=== PATIENT | female | born 1950 | race Caucasian/White ===

== ENCOUNTER 2016-09-20 06:49 | Inpatient (IN) | payer MEDICARE ==
[2016-09-12 12:53] VITALS: BMI 36.8
--- NOTE | 2016-09-14 14:15 | HP ---
Satellite [facility] - Chief Complaint Chief Complaint: right knee pain - Past Medical History Allergies/Adverse Reactions: Allergies Allergy/AdvReac Type Severity Reaction Status Date / Time canagliflozin [From Invokana] Allergy Severe Hives Verified 09/12/16 12:35 - Current Medications Current Medications: Home Medications Medication Instructions Recorded Acetaminophen [Tylenol -] 1,000 mg PO Q6H PRN 09/12/16 Anastrozole [Arimidex -] 1 mg PO DAILY 09/12/16 Aspirin [ASA -] 81 mg PO DAILY 09/12/16 Atorvastatin Ca [Lipitor] 20 mg PO HS 09/12/16 Ferrous Sulfate 325 mg PO DAILY 09/12/16 Glimepiride [Amaryl -] 4 mg PO BID 09/12/16 Hydrochlorothiazide 25 mg PO DAILY 09/12/16 Lisinopril 5 mg PO DAILY 09/12/16 Metformin HCl [Glucophage] 1,000 mg PO BID 09/12/16 Multivitamin/Iron/Folic Acid 1 each PO DAILY 09/12/16 [Centrum Women Tablet] Mv, Min #36/Iron,Carbonyl/FA 1 each PO DAILY 09/12/16 [Geritol Complete Tablet] Zolpidem Tartrate [Ambien] 5 mg PO HS PRN 09/12/16 Satellite Physical Exam - Physical Examination General Appearance: Well Nourished, Well Developed, Alert & Oriented x3 ENT: Clear Lung: Normal air movement Heart: Regular rate & rhythm Extremities: Other (right knee- + swelling, + ttp, decr rom, nvi xrays show tricompartmental djd) Neurological: Intact, Alert, Oriented Satellite Impression/Plan - Impression/Plan Impression: right knee djd Operative Procedure: right jacek tkr Date to be Performed: 09/20/16
[2016-09-20] MEDS ORDERED: ceFAZolin SODIUM 1 GM VIAL ONE ×2 (07:05→09:35)
[2016-09-20] MEDS ORDERED: VANCOMYCIN 1,000 MG VIAL (RESTRICTED TO ID ONLY) ONE (07:05)
[2016-09-20] MEDS ORDERED: oxyCODONE HCL 10 MG SUSTAINED ACTING TABLET PO ONE (07:56)
[2016-09-20] MEDS ORDERED: TRANEXAMIC ACID 1000 MG/10 ML VIAL IVPUSH ONE (07:56)
[2016-09-20] MEDS ORDERED: CELECOXIB 200 MG CAPSULE PO ONE (07:56)
[2016-09-20] MEDS ORDERED: CEFAZOLIN 2 GM in DEXTROSE 5%-WATER - 50 ML IVPB ONE (07:56)
[2016-09-20] MEDS ORDERED: GABAPENTIN 300 MG CAPSULE (FP) PO ONE (07:56)
[2016-09-20] MEDS ORDERED: DEXAMETHASONE SOD PHOSPHATE/PF 10 MG/ML SDV ONE (08:43)
[2016-09-20] MEDS ORDERED: SODIUM CHLORIDE 0.9% P/F 10 ML VIAL IJ ONE (08:43)
[2016-09-20] MEDS ORDERED: MIDAZOLAM HCL 2 MG/2 ML SINGLE DOSE VIAL ONE (08:43)
[2016-09-20] MEDS ORDERED: BUPIVACAINE HCL/PF (5 MG/ML) 30 ML VIAL IJ ONE (08:43)
[2016-09-20] MEDS ORDERED: PROPOFOL 20 ML ONE ×3 (09:33→10:33)
[2016-09-20] MEDS ORDERED: SUCCINYLCHOLINE CHLORIDE 200 MG/10 ML VIAL ONE (09:34)
[2016-09-20] MEDS ORDERED: ONDANSETRON 4 MG/2 ML VIAL ONE ×2 (09:44→10:15)
[2016-09-20] MEDS ORDERED: DEXAMETHASONE SOD PHOSPHATE 4 MG/1 ML VIAL ONE (09:44)
[2016-09-20] MEDS ORDERED: VANCOMYCIN 1,000 MG VIAL (RESTRICTED TO ID ONLY) IVPB ONE (11:02)
[2016-09-20] MEDS ORDERED: ZOLPIDEM TARTRATE 5 MG TABLET PO PRN (11:54)
[2016-09-20] MEDS ORDERED: ACETAMINOPHEN 500 MG TABLET (FP) PO PRN (11:54)
[2016-09-20] MEDS ORDERED: ONDANSETRON 4 MG/2 ML VIAL IVPB PRN (11:55)
[2016-09-20] MEDS ORDERED: MAG HYDROX/AL HYDROX/SIMETH 30 ML UNIT-DOSE CUP PO PRN (11:55)
[2016-09-20] MEDS ORDERED: LACTATED RINGERS SOLUTION 1,000 ML IV SCH (12:00)
[2016-09-20] MEDS ORDERED: oxyCODONE HCL 5 MG TABLET PO PRN (12:03)
--- NOTE | 2016-09-20 13:38 | OP ---
Operative Note - Note: Operative Date: 09/20/16 Pre-Operative Diagnosis: Right knee djd, oa Operation: AMEE right TKR Post-Operative Diagnosis: Same as Pre-op Surgeon: Lee Pena Anesthesiologist/SYNTHETIC DEPARTMENT SUPERVISOR: Timothy Maradiaga Anesthesia: Spinal Estimated Blood Loss (mls): 100 Fluid Volume Replaced (mls): 1,000 Operative Report Dictated: Yes
--- NOTE | 2016-09-20 13:39 | SURG ---
Surgery Registration Representative Note Registration Representative: Rhett Desai PA-C Date of Service: 09/20/16 Diagnosis: Right knee djd Procedure: AMEE right toatal knee replacement I was present for the entirety of the operative procedure. For further detail, please refer to operative report. Visit type - Case Type Case Type: Scheduled Admission - New patient This patient is new to me today: Yes Date on this admission: 09/20/16
[2016-09-20] MEDS: GLIMEPIRIDE 2 MG TABLET (FP) PO SCH (16:15)
[2016-09-20] MEDS: oxyCODONE HCL 5 MG TABLET PO PRN (16:15)
[2016-09-20] MEDS: metFORMIN HCL 500 MG TABLET (FP) PO SCH (16:15)
[2016-09-20] MEDS: ACETAMINOPHEN 325 MG TABLET (FP) PO SCH (17:20)
[2016-09-20] MEDS: CEFAZOLIN 2 GM/D5W 50 ML IVPB SCH (17:20)
[2016-09-20] MEDS: SENNOSIDES/DOCUSATE COMBO (SENNA PLUS) TABLET (UD) PO SCH (21:12)
[2016-09-20] MEDS: ATORVASTATIN CA 20 MG TABLET (FP) PO SCH (21:13)
[2016-09-20] MEDS: oxyCODONE HCL 10 MG SUSTAINED ACTING TABLET PO SCH (21:13)
[2016-09-20] MEDS: GABAPENTIN 300 MG CAPSULE (FP) PO SCH (21:13)
[2016-09-20] MEDS ORDERED: PATIENT'S OWN MEDICATION (NON-FORMULARY) (Metformin Hcl [Glucophage] 1,000 MG) PO SCH (22:00)
[2016-09-20] MEDS ORDERED: GLIMEPIRIDE 4 MG TABLET (FP) PO SCH (22:00)
[2016-09-21] MEDS: CEFAZOLIN 2 GM/D5W 50 ML IVPB SCH (01:44)
[2016-09-21] MEDS: ACETAMINOPHEN 325 MG TABLET (FP) PO SCH ×4 (06:26→19:26)
[2016-09-21] MEDS: metFORMIN HCL 500 MG TABLET (FP) PO SCH ×2 (06:27→16:39)
[2016-09-21] MEDS: GLIMEPIRIDE 2 MG TABLET (FP) PO SCH ×2 (06:27→16:39)
[2016-09-21 08:46] LABS: MCH 32.7 pg (25.7-33.7); MCHC 33.4 g/dl (32.0-36.0); MEAN CELL VOLUME 98.1 fl (80-96); MEAN PLT VOLUME 6.7 fl (7.5-11.1); PLATELET COUNT 321 K/MM3 (134-434); RDW 12.3 % (11.6-15.6); WHITE BLOOD COUNT 12.1 K/mm3 (4.0-10.8)
[2016-09-21 08:53] LABS: ANION GAP 7 (8-16); CALCIUM 8.9 mg/dl (8.4-10.2); CO2 26 mmol/L (22-28); CREATININE 0.7 mg/dl (0.6-1.3); GLUCOSE,RANDOM 173 mg/dl (74-106)
--- NOTE | 2016-09-21 08:53 | SPEC ---
DATE OF OPERATION: 09/20/2016 OPERATION: Right total knee replacement with robotic-assisted navigation (MAKOplasty). PREOPERATIVE DIAGNOSIS: Degenerative joint disease, right knee. POSTOPERATIVE DIAGNOSIS: Degenerative joint disease, right knee. SURGEON: Lee Pena M.D. DRYING OVEN TENDER: RUFUS Vu ANESTHESIA: Regional and spinal. CLOSURE: A Triathlon knee system with a cemented 3 femur, a 3 tibia, an 11 polyethylene, a 32 patella. A number 1 Vicryl fascia, 0 and 2-0 for subcutaneous, 3-0 Monocryl subcuticular with skin glue for skin, 4-0 undyed Vicryl for pin sites. ESTIMATED BLOOD LOSS: Negligible. TOURNIQUET TIME: Approximately 75 minutes. COMPLICATIONS: None CONDITION: To recovery room in stable condition. DESCRIPTION OF PROCEDURE: Patient was taken to the operating room on September 20, 2016. Regional and spinal anesthesia were administered by the anesthesiologist. IV antibiotics and TXA were administered prophylactically prior to the case. A well-padded pneumatic tourniquet was placed on the right proximal thigh. The right lower extremity was prepped and draped in the usual sterile fashion. An approximately 12-cm midline incision centered over the patella was incised. Hemostasis was achieved with Bovie cautery. Sharp dissection was carried down to the level of the extensor mechanism the procedure. A medial parapatellar arthrotomy was then performed. The patella was inverted and the knee was flexed up to 90 degrees. Subperiosteal dissection was performed on the anteromedial proximal tibia until the knee was able to be brought forward. This was facilitated by taking the ACL, the PCL, and the medial and lateral menisci. A checkpoint was malleted into the medial femoral condyle and into the anteromedial proximal tibia. Through two small stab incisions in the mid femur and two in the mid tibia, two bicortical pins were drilled, achieving excellent height. Two of these pins were attached to the navigation arrays. The knee was then registered with the navigation device by rotating the hip to ascertain the center of rotation of the hip with points on both the medial and lateral malleoli and multiple points on both the femur and on the tibia. Excellent registration was confirmed by "popping the bubbles". At this time, the osteophytes on the edges of the proximal tibia both medially and laterally, as well as on the medial lateral femoral condyles underneath the collateral ligaments were debrided. The knee was stressed in extension and in flexion to confirm good gaps. The virtual positions of the components were then optimized in order to have a balanced knee, both in extension and in 90 degrees of flexion. The sizes of the components were also optimized to get good coverage over both the tibia and the femur and to produce equal gaps in extension and flexion with the appropriate amount of external rotation of the femur, the appropriate amount of flexion of the femoral component and the appropriate slope on the tibial component. At this time, the robot was brought into the field and registered. The robot was used to cut the proximal tibia and to make all the cuts on the distal femur. The bone was then removed. A spacer block in extension and flexion was used to confirm equal balancing of the component in both extension and 90 degrees of flexion. The box for the posterior cruciate sacrificing component was then performed and a trial component on the femur and tibia was applied. The femoral component was clipped into place with the appropriate external rotation. This was confirmed by the navigation device, ensuring the appropriate position of the tibial component on the proximal tibia. The patella was calipered for thickness and osteotomized at the appropriate level. A lollipop was used to drill the three lugholes in the patella and then a trial component was applied. The knee was taken through a range of motion and found to have excellent tracking of the patella from full extension to full flexion, with good stability, varus/valgus throughout range of motion. The trial components were then removed. Before removing the tibial tray, the keyhole was made. The knee was then thoroughly irrigated with antibiotic irrigation. The real components were then cemented in, using modern generation cement techniques with antibiotic cement and pressurization. After the cement was hardened, the knee was thoroughly inspected to remove all excess cement. The real polyethylene component was then clipped into place. Again, range of motion, stability and tracking were found to be excellent throughout. The knee was then pulse antibiotic irrigated and dried. Vancomycin powder was placed into the knee. The checkpoints were removed. The medial parapatellar arthrotomy was then closed using number 1 Vicryl interrupted suture. The knee was again taken through range of motion and found to have no undue tension on the repair and good tracking throughout. The subcutaneous was closed with 0 and 2-0 Vicryl and 3-0 Monocryl subcuticular for skin with skin glue. The pins were removed in the femur and the tibia and pulse antibiotic irrigated and closed with 4-0 undyed Vicryl. Sterile Aquacel dressing followed by a Blackburn dressing was applied. The tourniquet was then deflated. One more dose of TXA was administered at the end of the case. The patient was awakened from anesthesia and transferred to the recovery room in stable condition. X-rays revealed good position of the components. There were no complications. Estimated blood loss was negligible. Total tourniquet time was approximately 75 minutes. Jatinder DE [id number]
[2016-09-21] MEDS: PANTOPRAZOLE 40 MG TABLET (FP) PO SCH (09:35)
[2016-09-21] MEDS: ASPIRIN 325 MG TABLET PO SCH (09:35)
[2016-09-21] MEDS: MULTIVITAMINS THER W-MINERALS COMBO TABLET (FP) PO SCH (09:36)
[2016-09-21] MEDS: ANASTROZOLE 1 MG TABLET PO SCH (09:36)
[2016-09-21] MEDS: CELECOXIB 200 MG CAPSULE PO SCH (09:36)
[2016-09-21] MEDS: FERROUS SO4 325 MG TABLET (FP) PO SCH (09:37)
[2016-09-21] MEDS: LISINOPRIL 5 MG TABLET (FP) PO SCH (09:37)
[2016-09-21] MEDS: SENNOSIDES/DOCUSATE COMBO (SENNA PLUS) TABLET (UD) PO SCH ×2 (09:37→21:52)
[2016-09-21] MEDS: HYDROCHLOROTHIAZIDE 25 MG TABLET (FP) PO SCH (09:38)
[2016-09-21] MEDS: GABAPENTIN 300 MG CAPSULE (FP) PO SCH ×2 (09:38→21:52)
[2016-09-21] MEDS: oxyCODONE HCL 10 MG SUSTAINED ACTING TABLET PO SCH ×2 (09:38→21:53)
[2016-09-21] MEDS ORDERED: [UNRECOGNIZED DRUG - OTHER] PO SCH (10:00)
[2016-09-21] MEDS ORDERED: MV MIN PO SCH (10:00)
[2016-09-21] MEDS ORDERED: PATIENT'S OWN MEDICATION (NON-FORMULARY) (Multivitamin/Iron/Folic Acid [Centrum Women Tabl PO SCH (10:00)
[2016-09-21] MEDS ORDERED: PATIENT'S OWN MEDICATION (NON-FORMULARY) (Ferrous Sulfate [Ferrous Sulfate] 325 MG) PO SCH (10:00)
[2016-09-21] MEDS ORDERED: IRON CARBONYL PO SCH (10:00)
--- NOTE | 2016-09-21 10:21 | PN ---
Progress Note (short form) - Note Progress Note: ANESTHESIOLOGY POSTOP: 65 yo female POD #1 s/p R TKA. Patient doing "ok". Pain is tolerable and she gets some relief with medications. She is able to participate in PT. Tolerating PO. Continue current care and encourage IS at bedside.
--- NOTE | 2016-09-21 11:54 | PN ---
Progress Note (short form) - Note Progress Note: AVSS COMFORTABLE AQUACEL DRESSING DRY AND INTACT CALF SOFT AND NT NVI PROM 0-90 POOR STRENGTH IN QUADS NOW IMP: DOING WELL PLAN: PT, MAY USE BRACE TO AID IN AMBULATION, DC TOMORROW
[2016-09-21] MEDS: ATORVASTATIN CA 20 MG TABLET (FP) PO SCH (21:52)
[2016-09-21] MEDS: oxyCODONE HCL 5 MG TABLET PO PRN (21:52)
[2016-09-22] MEDS: ACETAMINOPHEN 325 MG TABLET (FP) PO SCH ×3 (00:09→12:56)
[2016-09-22] MEDS: GLIMEPIRIDE 2 MG TABLET (FP) PO SCH (06:21)
[2016-09-22] MEDS: metFORMIN HCL 500 MG TABLET (FP) PO SCH (06:21)
[2016-09-22] MEDS: oxyCODONE HCL 5 MG TABLET PO PRN ×2 (06:22→12:56)
[2016-09-22 08:35] LABS: MCH 32.7 pg (25.7-33.7); MCHC 33.7 g/dl (32.0-36.0); MEAN CELL VOLUME 97.1 fl (80-96); MEAN PLT VOLUME 6.6 fl (7.5-11.1); PLATELET COUNT 323 K/MM3 (134-434); RDW 12.4 % (11.6-15.6); WHITE BLOOD COUNT 10.8 K/mm3 (4.0-10.8)
[2016-09-22 09:08] VITALS: BP 110/55; PULSE 73; TEMP 98
[2016-09-22] MEDS: ANASTROZOLE 1 MG TABLET PO SCH (10:32)
[2016-09-22] MEDS: LISINOPRIL 5 MG TABLET (FP) PO SCH (10:32)
[2016-09-22] MEDS: GABAPENTIN 300 MG CAPSULE (FP) PO SCH (10:32)
[2016-09-22] MEDS: PANTOPRAZOLE 40 MG TABLET (FP) PO SCH (10:32)
[2016-09-22] MEDS: oxyCODONE HCL 10 MG SUSTAINED ACTING TABLET PO SCH (10:32)
[2016-09-22] MEDS: CELECOXIB 200 MG CAPSULE PO SCH (10:32)
[2016-09-22] MEDS: MULTIVITAMINS THER W-MINERALS COMBO TABLET (FP) PO SCH (10:32)
[2016-09-22] MEDS: ASPIRIN 325 MG TABLET PO SCH (10:32)
[2016-09-22] MEDS: FERROUS SO4 325 MG TABLET (FP) PO SCH (10:32)
[2016-09-22] MEDS: HYDROCHLOROTHIAZIDE 25 MG TABLET (FP) PO SCH (10:32)
[2016-09-22] MEDS: SENNOSIDES/DOCUSATE COMBO (SENNA PLUS) TABLET (UD) PO SCH (10:32)
--- NOTE | 2016-09-22 15:19 | PATH ---
Surgical Pathology Report Patient Name: PETEY BAER [facility]. Rec. #: [id number] /Age/Gender: 1950 (Age: 65) / F Account: [id number] Location: [facility] MED-SURG Taken: 09/20/2016 Received: 09/20/2016 Reported: 09/22/2016 Physicians: Lee Pena M.D. Specimen(s) Received RIGHT KNEE BONE + TISSUE Clinical History Osteoarthritis right knee Final Diagnosis BONE AND SOFT TISSUE, RIGHT KNEE, REPLACEMENT: DEGENERATIVE JOINT DISEASE. Electronically Signed Omer Riojas M.D. Gross Description Received in formalin labeled "right knee bone and tissue," is a 13.0 x 9.5 x 1.7 cm aggregate of multiple medina, irregular portions of bone and soft tissue. The tibial plateau measures 7.0 x 4.7 x 1.3 cm. There is a 1.8 cm in greatest dimension area of eburnation is present. The remaining articular surfaces are medina-yellow and diffusely granular. The underlying trabecular bone is yellow and hard. Drill Runner Helper sections are submitted in one cassette, following decalcification. /09/21/2016 [facility]09/21/2016
== END 2016-09-22 13:26 | disposition home health service (06) | DRG 470 ==
LOC: FM/S 06:49
PROVIDERS: ADMIT Orthopaedic Surgery; ATTEND Orthopaedic Surgery
PROC: 8E0Y0CZ Robotic Assisted Procedure of Lower Extremity, Open Approach (ICD-10-PCS; 2016-09-20)
PROC: 0SRC0J9 Replacement of Right Knee Joint with Synthetic Substitute, Cemented, Open Approach (ICD-10-PCS; principal; 2016-09-20 10:00)
DX: M17.11 Unilateral primary osteoarthritis, right knee (principal)
CPT/HCPCS: 36415; 73560-TC-RT; 80048; 85027; 88305-TC; 88311-TC; 94010; 94760; 97116-GP; 97163-GP